=== PATIENT | female | born 1960 | race African-American/Black ===

== ENCOUNTER 2016-11-29 15:47 | Inpatient (IN) | payer BC ==
--- NOTE | ~2016-11-29 | HP ---
History And Physical [address] [place]. [address] NAME: KATTY WICK : 56 STATUS : ADM IN [facility]#: [id number] AGE: 56 ADM/REG DATE : 11/29/16 MR#: [id number] REPORT SERV DATE: 11/30/16 DICTATED BY: SPENSER ZARATE DATE: 11/30/16 REPORT STATUS : Draft TRANSCRIBED BY: MODArtie DATE: 11/30/16 DATE OF ADMISSION: 11/29/2016 CHIEF COMPLAINT: This is a 56-year-old female presenting with shortness of breath. HISTORY OF PRESENT ILLNESS: The patient's history was obtained through careful interview with the patient and her , coupled with review of [facility] and [employer] medical records. The patient states that around November 22, she first began to feel ill. She had a cough that was mostly productive of yellow sputum, but one time actually showed some blood in it. She finally went to see her primary care physician a few days ago and was placed on a Z-Terrence without any help and also an inhaler. She describes dyspnea on exertion. She describes the headache in her forehead was sinus pressure and aching quality, 7/10 in severity, but no nasal discharge, no sore throat. There has been no chest pain. She has had nausea, but no vomiting, no abdominal pain, no diarrhea, no rash, no confusion. The patient has had lightheadedness. She admits that her blood sugars have been poorly controlled with blood sugars mostly over the 200s. REVIEW OF SYSTEMS: Otherwise 14-point review of systems was obtained and was negative. PAST MEDICAL HISTORY: 1. Diabetes. Hemoglobin A1c of 9.1, September 2016. 2. COPD. 3. Stroke. March 2015 with mild memory changes, but no weakness. 4. Gastroesophageal reflux disorder. 5. Hypertension. 6. Dyslipidemia. 7. Neuropathy. 8. Ischemic colitis, seen by Dr. Luevano. 9. Recurrent urinary tract infections. PAST SURGICAL HISTORY: 1. Right carotid endarterectomy. 2. Cholecystectomy. 3. Bilateral breast reduction. 4. Tubal ligation. 5. Knee surgery. ALLERGIES: ROCEPHIN. History And Physical [address] [address] NAME: KATTY WICK : 56 STATUS : ADM IN PAT#: [id number] AGE: 56 ADM/REG DATE : 11/29/16 MR#: [id number] REPORT SERV DATE: 11/30/16 DICTATED BY: SPENSER ZARATE DATE: 11/30/16 REPORT STATUS : Draft TRANSCRIBED BY: ASHLEY DATE: 11/30/16 SOCIAL HISTORY: Quit smoking in 2014. No alcohol abuse. She is . Lives in [place], [place]. Has two children, a son who lives in [facility] and a daughter who lives with the patient herself as well as 4 grandchildren were also living in the home. The patient still works as a practice or student teacher. FAMILY HISTORY: Coronary artery disease, diabetes. Mother and father both in their 50s of heart disease. ALLERGIES: ROCEPHIN. CURRENT MEDICATIONS: Include albuterol inhaler, aspirin 81 mg p.o. daily, Z-Terrence, iron supplement 325 mg p.o. daily, Neurontin 300 mg p.o. b.i.d., Mucinex, Levemir 15 units subcutaneous at bedtime, Creon before each meal, metformin 1000 mg p.o. b.i.d., metoprolol 25 mg p.o. b.i.d., Benicar 40 mg p.o. daily, Protonix 40 mg p.o. daily, Pravachol 40 mg p.o. daily. PHYSICAL EXAMINATION: VITAL SIGNS: Temperature 98.4, pulse 101, blood pressure 144/81, respiratory rate 20, and O2 sat 91% on room air. GENERAL: Pleasant, cooperative, female, with evidence of distress secondary to shortness of breath and cough. HEENT: Pupils equal, round, and reactive to light. No conjunctival pallor. No scleral icterus. Nares are patent. Oropharynx is clear of obstruction. Moist mucous membranes. NECK: Trachea midline. No thyromegaly. LYMPH: No cervical lymphadenopathy. No supraclavicular lymphadenopathy. RESPIRATORY: The patient does seem to have diminished breath sounds at the left base of her lung. I do think I appreciate some focal egophony in the left lower lung as well. She has scattered upper respiratory rhonchi that predominate, but also some scattered active wheezes throughout the entire lung examination. She has a prolonged expiratory phase and a labored respiratory effort. CARDIOVASCULAR: Tachycardic. Regular rhythm. No murmurs, rubs, or gallops. No extremity edema is appreciated. ABDOMEN: Soft, nontender, nondistended. Normal bowel sounds auscultated throughout. No organomegaly. DERMATOLOGICAL: Warm and dry extremities. No pallor. No cyanosis. PSYCHIATRIC: Normal affect. Good mood. Alert and oriented x3. LABORATORY DATA: White blood count 6.8, hemoglobin 9.9, hematocrit 32.3, platelets 344, MCV 73, sodium 138, potassium 4.8, chloride 103, bicarb 28, BUN 10, creatinine 0.89, glucose 162, lactic acid 1.7, INR 1.1. Liver enzymes within normal limits. ABG demonstrates pH 7.42, PaCO2 of 32, PaO2 of 59, bicarbonate of 20 on room air. Urinalysis negative for infection, just shows 8 white blood cells. STUDIES: 1. CT scan of the chest shows no pulmonary embolism, but left middle lung and lower lung pneumonia. 2. EKG, by my own evaluation shows sinus tachycardia, no other abnormalities. History And Physical [address] [address] NAME: KATTY WICK : 56 STATUS : ADM IN [facility]#: [id number] AGE: 56 ADM/REG DATE : 11/29/16 MR#: [id number] REPORT SERV DATE: 11/30/16 DICTATED BY: SPENSER ZARATE DATE: 11/30/16 REPORT STATUS : Draft TRANSCRIBED BY: MODArtie DATE: 11/30/16 ASSESSMENT AND PLAN: 1. Community-acquired pneumonia, "failed" outpatient treatment. Check blood cultures. Check influenza. Placed on IV antibiotics. 2. Hypoxemia, provide supportive care. 3. Chronic obstructive pulmonary disease exacerbation with active wheezes, "tight" exam. Placed on IV Solu-Medrol, DuoNeb nebulizers. 4. Diabetes. Recent hemoglobin A1c of 9.1 in September 2016, increased basal Levemir and placed on aggressive sliding scale insulin. 5. Microcytic anemia. Check iron studies. KPL/MODL Spenser Zarate M.D. / [id number] CC: Tate Saunders M.D.
--- NOTE | ~2016-11-29 | DS ---
Discharge Summary [facility] [address] [place]. [address] NAME: KATTY WICK : 56 STATUS : DIS IN PAT#: [id number] AGE: 56 ADM/REG DATE : 11/29/16 MR#: [id number] REPORT SERV DATE: 12/02/16 DICTATED BY: NATE CABELLO DATE: 12/01/16 REPORT STATUS : Draft TRANSCRIBED BY: MODL DATE: 12/01/16 ADMISSION DATE: 11/29/2016 DISCHARGE DATE: 12/01/2016 DISCHARGE DIAGNOSES: 1. Chronic obstructive pulmonary disease exacerbation. 2. Community-acquired pneumonia, resolving. 3. Hypoxic respiratory failure. 4. Diabetes. 5. Anemia. CONSULTS: None. PROCEDURES: None. HOSPITAL COURSE: This is a 56-year-old lady who was admitted to the hospital with community- acquired pneumonia who has failed outpatient therapy. For details, please refer to H and P by Dr. Aly. In summary, the patient was admitted with a community-acquired pneumonia who has failed outpatient therapy; however, it became more evident that the patient was suffering from a COPD exacerbation, likely related to a community-acquired pneumonia that was now resolving. The patient was treated with IV steroids, bronchodilator therapy, additional antibiotics, and oxygen. The patient actually did really well on the first couple days, and by the third day, the patient really did not require any oxygen therapy. The patient is thus now being discharged home with plans for close outpatient followup. The patient will be discharged home with five additional days of steroids and antibiotics as well as albuterol and Spiriva inhalers. DISPOSITION: Home. FOLLOWUP: Please follow up with PCP in the next one to two weeks. A total of 25 minutes spent in coordinating this patient's discharge today. BRIDGETT/ASHLEY Nate Cabello MD / [id number] CC: MD Tate Solares M.D.
[2016-11-29 15:09] LABS: HEMATOCRIT 32.3 % (36.0-48.0); HEMOGLOBIN 9.9 g/dL (12.0-16.0); MEAN CORPUS HGB CONC 30.7 g/dL (32.0-36.0); MEAN CORPUSCULAR HEMOGLOB 22.4 pg (26.0-34.0); MEAN CORPUSCULAR VOLUME 73.2 fL (80-100); MEAN PLATELET VOLUME 9.5 fL (9.2-13.0); PLATELET COUNT 344 10/3/uL (150-400); RBC DISTRIBUTION WIDTH 16.8 % (12.0-16.0); RED CELL COUNT 4.41 10/6/uL (4.0-5.6)
[2016-11-29 15:10] LABS: ER CBC TAT 0 Hrs 08 Mins; MANUAL DIFF YES %; WHITE BLOOD CELLS 6.8 10/3/uL (4.5-10.5)
[2016-11-29 15:15] LABS: INTERNATIONAL NORMAL RATI 1.1 UNITS (-); PROTIME (NOT ORD) 13.8 SEC (12.0-14.5)
[2016-11-29 15:16] LABS: PARTIAL THROMBO TIME 25.8 SEC (22.5-37.2)
[2016-11-29 15:22] LABS: A/G RATIO 0.7 (0.7-1.9); ALBUMIN 3.4 G/DL (3.5-5.0); BUN (BLOOD UREA NITROGEN) 10 MG/DL (6-23); CALCIUM, SERUM 8.6 MG/DL (8.5-10.4); CHLORIDE, SERUM 103 MMOL/L (96-112); CO2 (CARBON DIOXIDE) 26 MMOL/L (24-34); CREATININE 0.89 MG/DL (0.55-1.02); GFR AFRICAN AMERICAN 83 ML/MIN (>=60); GFR NON AFRICAN AMERICAN 71 ML/MIN (>=60); GLOBULIN 4.9 G/DL (2.5-4.1); GLUCOSE, SERUM 162 MG/DL (60-99); POTASSIUM, SERUM 4.2 MMOL/L (3.5-5.3); SGOT(AST) 18 U/L (5-40); SGPT(ALT) 17 U/L (5-65); SODIUM, SERUM 138 MMOL/L (135-148); TOTAL BILIRUBIN 0.2 MG/DL (0-1.2); TOTAL PROTEIN 8.3 G/DL (6.0-8.5)
[2016-11-29 15:24] LABS: ALKALINE PHOSPHATASE 97 U/L (45-117)
[2016-11-29 15:28] LABS: LACTATE 1.7 MMOL/L (0.3-2.4)
[2016-11-29 15:36] LABS: ANISOCYTOSIS 1+ (5-10/OIF) (0-5/OIF); BASOPHILS 1 %; BASOPHILS ABSOLUTE (CALC) 0.07 10/3/uL (0.0-0.16); EOSINOPHILS 3 %; ER DIFF TAT 0 Hrs 34 Mins; LYMPHOCYTES 35 %; LYMPHOCYTES ABSOLUTE (CALC) 2.38 10/3/uL (0.67-4.30); MONOCYTES 5 %; MONOCYTES ABSOLUTE (CALC) 0.34 10/3/uL (0.21-1.20); NEUTROPHILS ABSOLUTE (CALC) 3.81 10/3/uL (2.02-8.40); POIKILOCYTOSIS 1+ (5-10/OIF) (0-5/OIF); SEGMENTED NEUTROPHIL (0) 56 %; TOTAL NUCLEATED CELLS 100
[2016-11-29 15:37] LABS: ATYPICAL LYMPH FEW (3-5%) (0-5%)
[2016-11-29 15:43] LABS: ASCORBIC ACID (UR NOT ORDER) NEG (NEG); BILIRUBIN, URINE NEGATIVE (NEG); ER URINALYSIS TAT 0 Hrs 10 Mins; KETONE, URINE TRACE MG/DL (NEG); LEUKOCYTE ESTERASE(NOT OR TRACE (NEG); NITRITE (URINE) NEG (NEG); WBC (NOT ORDERED) (RFLEX) 8 (0-5)
[~2016-11-29 15:47] MED LIST: ASAB PO; BENICAR20 PO; EZFE 200200 MG PO; GLUCOPHAGE1000 MG PO; GLUCPH PO; INDE80 PO; LIOR10; LIOR10 PO; LOP25 PO; NEUR100 PO; NEXIUM40 PO; NITROSTAT0.4 MG SL; NORCO1 TA1; NORCO1 TA1 PO; NTG150 SL; PLAVIX PO; PRAVACHOL40 MG PO; PROTONIX PO; TRADJENTA5 MG PO; ULTRAM50 PO; ZANTAC 150 PO; ZANTAC150 MG PO; ZOCOR20 PO
[2016-11-29 16:14] LABS: PROCALCITONIN 0.06 ng/mL (<0.5)
[2016-11-29 17:12] LABS: ALLENS TEST Pos; BE (BASE EXCESS) -3.2 MEQ/L (0 +/- 2.5); CARBOXYHEMOGLOBIN 0.9 % (0-3); HCO3 (ACTUAL BICARBONATE) 20.5 MEQ/L (23-27); HEMOBLOGIN CONTENT 10.4 G/DL (12-16); INSTRUMENT SERIAL # 8087; METHEMOGLOBIN 0.5 % (0-3); O2 CONTENT 13.2 VOL% (18-24); PCO2 (CO2 TENSION) 32 MMHG (35-45); PO2 (O2 TENSION) 60 MMHG (79-93); SAMPLE Arterial; pH 7.43 (7.37-7.43)
[2016-11-29] MEDS ORDERED: BENICAR40 PO (19:42)
[2016-11-29] MEDS ORDERED: ASAB PO (19:42)
[2016-11-29] MEDS ORDERED: NEUR100 PO (19:43)
[2016-11-29] MEDS ORDERED: CREON DR 36,001 EACH PO (19:43)
[2016-11-29] MEDS ORDERED: FERROUS SULF325 M1 PO (19:43)
[2016-11-29] MEDS ORDERED: PROTONIX PO (19:44)
[2016-11-29] MEDS ORDERED: LEVEMIR SC (19:44)
[2016-11-29] MEDS ORDERED: LOP25 PO (19:44)
[2016-11-29] MEDS ORDERED: FORTAMET1000 MG PO (19:44)
[2016-11-29] MEDS ORDERED: MUCINEX1200 MG PO (19:45)
[2016-11-29] MEDS ORDERED: PRAVACHOL40 MG PO (19:45)
[2016-11-29] MEDS ORDERED: Z-PAK PO (19:45)
[2016-11-29] MEDS ORDERED: PROAIR HFA INH (19:46)
[2016-11-29 23:26] LABS: INFLUENZA A SCREEN NEGATIVE (NEGATIVE); INFLUENZA B SCREEN NEGATIVE (NEGATIVE)
[2016-11-30 07:16] LABS: BASOPHILS 0.2 %; BASOPHILS ABSOLUTE 0.01 10/3/uL (0.0-0.16); EOSINOPHILS 0 %; HEMATOCRIT 29.5 % (36.0-48.0); HEMOGLOBIN 9.2 g/dL (12.0-16.0); IMMATURE GRANULOCYTES 0.2 %; IMMATURE GRANULOCYTES ABSOLUTE 0.01 10/3/uL (0.0-0.11); LYMPHOCYTES 20.8 %; LYMPHOCYTES ABSOLUTE 1.12 10/3/uL (0.67-4.30); MEAN CORPUS HGB CONC 31.2 g/dL (32.0-36.0); MEAN CORPUSCULAR HEMOGLOB 22.3 pg (26.0-34.0); MEAN CORPUSCULAR VOLUME 71.4 fL (80-100); MEAN PLATELET VOLUME 9.5 fL (9.2-13.0); MONOCYTES 4.5 %; MONOCYTES ABSOLUTE 0.24 10/3/uL (0.21-1.20); NEUTROPHILS 74.3 %; NEUTROPHILS ABSOLUTE 4.01 10/3/uL (2.02-8.40); PLATELET COUNT 363 10/3/uL (150-400); RBC DISTRIBUTION WIDTH 16.9 % (12.0-16.0); RED CELL COUNT 4.13 10/6/uL (4.0-5.6); WHITE BLOOD CELLS 5.4 10/3/uL (4.5-10.5)
[2016-11-30 07:18] LABS: MANUAL DIFF NO %
[2016-11-30 07:23] LABS: PARTIAL THROMBO TIME 28.6 SEC (22.5-37.2)
[2016-11-30 07:24] LABS: INTERNATIONAL NORMAL RATI 1.2 UNITS (-); PROTIME (NOT ORD) 14.6 SEC (12.0-14.5)
[2016-11-30 07:33] LABS: CALCIUM, SERUM 8.4 MG/DL (8.5-10.4); CHLORIDE, SERUM 103 MMOL/L (96-112); POTASSIUM, SERUM 3.9 MMOL/L (3.5-5.3); SODIUM, SERUM 138 MMOL/L (135-148)
[2016-11-30 08:05] LABS: A/G RATIO 0.7 (0.7-1.9); ALBUMIN 3.3 G/DL (3.5-5.0); ALKALINE PHOSPHATASE 87 U/L (45-117); CREATININE 0.89 MG/DL (0.55-1.02); FERRITIN 85 NG/ML (8-252); GFR AFRICAN AMERICAN 83 ML/MIN (>=60); GFR NON AFRICAN AMERICAN 71 ML/MIN (>=60); IRON BINDING CAPACITY 259 MCG/DL (225-410); IRON, SERUM 19 MCG/DL (35-150); SGOT(AST) 15 U/L (5-40); SGPT(ALT) 18 U/L (5-65); TOTAL BILIRUBIN 0.2 MG/DL (0-1.2); TOTAL PROTEIN 8.3 G/DL (6.0-8.5); TROPONIN I <0.02 NG/ML (<0.05)
[2016-11-30 08:06] LABS: BUN (BLOOD UREA NITROGEN) 14 MG/DL (6-23); CO2 (CARBON DIOXIDE) 21 MMOL/L (24-34); GLUCOSE, SERUM 289 MG/DL (60-99); ULTRASENSITIVE TSH 0.546 MCIU/ML (0.358-3.740)
[2016-11-30 11:50] LABS: PROCALCITONIN 0.08 ng/mL (<0.5)
[2016-12-01] MEDS ORDERED: LEVAQUIN750 MG PO (14:48)
[2016-12-01] MEDS ORDERED: P10 PO (14:48)
== END 2016-12-01 18:30 | disposition home or self-care (01) | DRG 190 ==
LOC: ER 15:47 → 4SO 19:25
PROVIDERS: Hospitalist; Nurse Practitioner
DX: J44.1 Chronic obstructive pulmonary disease with (acute) exacerbation (principal); J18.9 Pneumonia, unspecified organism; J96.91 Respiratory failure, unspecified with hypoxia; K55.1 Chronic vascular disorders of intestine; E11.9 Type 2 diabetes mellitus without complications; K21.9 Gastro-esophageal reflux disease without esophagitis; E78.5 Hyperlipidemia, unspecified; D64.9 Anemia, unspecified; J44.0 Chronic obstructive pulmonary disease with (acute) lower respiratory infection; I69.311 Memory deficit following cerebral infarction; Z87.891 Personal history of nicotine dependence; Z88.1 Allergy status to other antibiotic agents; Z79.82 Long term (current) use of aspirin; Z79.4 Long term (current) use of insulin; Z79.84 Long term (current) use of oral hypoglycemic drugs
CPT/HCPCS: 36600; 71010; 71275; 80053; 81001; 82728; 82805; 82962; 83540; 83550; 83605; 83735; 83880; 84145; 84443; 84484; 85025; 85610; 85730; 87040; 87804; 93005; 94640; 96374; 96375; 99285; A9270-GY; J1956; J2920; J2930; Q9967

== ENCOUNTER 2017-01-26 05:36 | Inpatient (IN) | payer BC ==
--- NOTE | ~2017-01-26 | CN ---
Consultation Report [facility] [address] [place]. [address] NAME: KATTY WICK : 56 STATUS : ADM Barry PAT#: [id number] AGE: 56 ADM/REG DATE : 01/26/17 MR#: [id number] REPORT SERV DATE: 01/26/17 DICTATED BY: DATE: REPORT STATUS : Draft TRANSCRIBED BY: MODL DATE: 01/26/17 DATE OF CONSULTATION: 01/26/2017 CHIEF COMPLAINT/REASON FOR CONSULTATION: Chest pain and abnormal cardiac biomarkers. PRIMARY STOCK SORTER: Reid Ferro MD HISTORY OF PRESENT ILLNESS: Ms. Katty Wick is very pleasant 56-year-old female, who awakened at 2:30 this morning with midsternal chest pain that radiated to her arm and in between her shoulder blades. It was 7/10 in intensity and was relieved by aspirin and nitroglycerin paste in the emergency department. When she arrived at the emergency department, her pain was 9/10 in intensity and then completely resolved. It has since returned, it is currently 2/10 to 3/10 in intensity. Her chest pain was associated with nausea and vomiting, it was not associated with shortness of breath. She felt warm, but not diaphoretic. Her initial cardiac biomarker in the emergency department was negative and has since increased to 0.35. PAST MEDICAL HISTORY: 1. Coronary artery disease, status post cardiac catheterization, 04/21/2015, with borderline obstructive branch vessel disease. 2. History of cerebrovascular disease and prior stroke. 3. History of carotid stenosis, status post carotid endarterectomy on the right by Dr. Tesfaye. 4. Hypertension. 5. Diabetes mellitus. 6. Hyperlipidemia. SOCIAL HISTORY: The patient is . She is a former smoker. Her and her daughter are present at the bedside. She does not use alcohol or extracurricular drugs. ALLERGIES: ROCEPHIN. FAMILY HISTORY: Both parents of coronary artery disease in their 50s. REVIEW OF SYSTEMS: All systems were reviewed and are negative, except for as dictated in the HPI. PHYSICAL EXAMINATION: VITAL SIGNS: Blood pressure 133 to 153 over 73 to 96, pulse is between 74 and 96, respirations 16, oxygen saturation 99% on room air. GENERAL: Mrs. Wick is a well-groomed 56-year-old female. She is in mild distress at this time. NECK: I could not appreciate jugular venous distention or carotid bruits. Prior carotid endarterectomy scar is noted on the right. HEART: Regular rate and rhythm. Normal S1 and S2. I could not appreciate murmurs, rubs, Consultation Report [place] [id number] [place]. [address] NAME: KATTY WICK : 56 STATUS : ADM Barry PAT#: [id number] AGE: 56 ADM/REG DATE : 01/26/17 MR#: [id number] REPORT SERV DATE: 01/26/17 DICTATED BY: DATE: REPORT STATUS : Draft TRANSCRIBED BY: MODL DATE: 01/26/17 or gallops on auscultation. LUNGS: Clear to auscultation in all pabon. ABDOMEN: Obese and nontender. I could not appreciate renal bruits. EXTREMITIES: Warm and well perfused. Femoral pulses +2 bilaterally. There are no femoral bruits present. Godfrey test on the right wrist demonstrated a slow return of blood supply to the palm of that hand with occlusion of the right radial artery. MUSCULOSKELETAL: There is no clubbing or cyanosis of the digits. DATA: Initial troponin less than 0.02, now 0.35. Potassium 4.1, BUN 27, creatinine 0.99, magnesium is 1.6. White blood cell count 16.4, hemoglobin 9.8, hematocrit 30.6, platelet count 409. An EKG performed on arrival to the emergency department demonstrated normal sinus rhythm at 94 beats per minute. There is a left axis deviation versus prior inferior myocardial infarction. There is poor R-wave progression present. Repeat EKG performed on 01/26/2017 at 12:52 demonstrated similar findings. IMPRESSION REPORT AND PLAN: 1. Tma-AN-vqchdover myocardial infarction. 2. Hypertension. 3. Hyperlipidemia. 4. Diabetes mellitus. 5. Carotid stenosis, status post carotid endarterectomy. RECOMMENDATIONS: 1. Would continue aspirin. 2. We have given nitroglycerin, which is partially relieving the patient's pain. 3. Start heparin drip via the cardiac protocol. 4. We discussed the risks, benefits, and alternatives of cardiac catheterization with the patient, who is agreeable to proceed. 5. Continue metoprolol tartrate. 6. Stop pravastatin and change to high-intensity statin. 7. Additional recommendations pending clinical course and cardiac catheterization. It has been my pleasure to participate in her care. LGC/MODL Koki Weir M.D. / [id number] CC: Bill Boothe MD
--- NOTE | ~2017-01-26 | HP ---
History And Physical [place] [id number] [facility] [place]. [address] NAME: KATTY WICK : 56 STATUS : DIS IN PAT#: [id number] AGE: 56 ADM/REG DATE : 01/26/17 MR#: [id number] REPORT SERV DATE: 01/29/17 DICTATED BY: WILDER TEMPLE DATE: 01/26/17 REPORT STATUS : Draft TRANSCRIBED BY: MODL DATE: 01/26/17 DATE OF ADMISSION: 01/26/2017 CHIEF COMPLAINT: Chest pain started last night at 2:30 while she was asleep. HISTORY OF PRESENT ILLNESS: This is a 56-year-old female patient who has mild coronary artery disease and obesity who came to the hospital waking up with chest pain at night. She said it is in her anterior chest and goes back to her back and it is a stabbing pain, it started at night and it continues currently. It has been more than 5 hours. She did not have any other unusual signs or symptoms prior to these symptoms happened before. She said she had a normal her daily's, until this pain started. Does not have any cough. She vomited this morning at home before she came to the hospital. She denies any shortness of breath. She thinks her morphine was helping her little bit, but she still has pain and nitroglycerin did not help her pain. She denies any pleuritic, worsening pain with this pain. Denies any palpitation or sweat or nausea. Initially, the patient was referred to chest pain unit, however, because of leukocytosis at 16,000, the patient has been redirected to be admitted by hospitalist service. I talked to Dr. Deshpande, who was given this patient from Dr. Osorio. In the emergency room, the patient had a negative workup including troponin and electrocardiogram. The electrocardiogram is same as the last time when she was here, not too long ago. She is followed by Dr. Ferro in the [facility]. She had a recent echocardiogram for evaluation of , and it showed mild diastolic dysfunction with mild mitral regurgitation and stenosis. The patient has not had any followup with Dr. Ferro after this 2D echocardiogram is done. She had a cardiac catheterization in 2014 prior to carotid endarterectomy. It showed a mild two-vessel branch disease, did not have any intervention at that time, she was put on medical treatment. She does not have any fever or chills. No urination problem. No constipation. No bleeding. REVIEW OF SYSTEMS: Fourteen systems are reviewed and negative except as mentioned above. PAST MEDICAL HISTORY: 1. Coronary artery disease, two-vessel disease as well as cardiac cath. 2. Peripheral vascular disease, status post right-sided carotid endarterectomy. 3. Diabetes, uncontrolled. History And Physical [address] [address] NAME: KATTY WICK : 56 STATUS : DIS IN PAT#: [id number] AGE: 56 ADM/REG DATE : 01/26/17 MR#: [id number] REPORT SERV DATE: 01/29/17 DICTATED BY: WILDER TEMPLE DATE: 01/26/17 REPORT STATUS : Draft TRANSCRIBED BY: ASHLEY DATE: 01/26/17 4. COPD. 5. Stroke without any deficit. 6. GERD. 7. Hypertension. 8. Hyperlipidemia. 9. Neuropathy. 10.Ischemic colitis with GI bleed, seen by Dr. Luevano. 11.History of UTI. 12.Morbid obesity. 13.Osteoarthritis. The patient had a steroid injection two days ago by Dr. Coffman in her left knee. PAST SURGICAL HISTORY: 1. Right carotid endarterectomy. 2. Cholecystectomy. 3. Bilateral breast reduction. 4. Tubal ligation. 5. Knee surgery. ALLERGIES: ROCEPHIN. FAMILY HISTORY: Positive for heart disease. SOCIAL HISTORY: She quit smoking in 2014. She is . Lives with her . She works as a teacher. MEDICATIONS AT HOME: 1. Albuterol as needed. 2. Aspirin 81 mg once a day. 3. EZFE 200 mg once a day. 4. Neurontin 200 mg twice a day. 5. Levemir 15 units at night. 6. Creon 36,000 units before meals and at bedtime. 7. Metformin 1000 mg twice a day. 8. Lopressor 25 mg twice a day. 9. Benicar 40 mg once a day. 10.Protonix 40 mg once a day. 11.Pravachol 40 mg once at nighttime. 12.Spiriva once a day. PHYSICAL EXAMINATION: VITAL SIGNS: Blood pressure is 133/75, respiratory rate 14, saturation is 99% on room air, pulse is 84, temperature was 97.5. GENERAL APPEARANCE: She is alert, awake, not in acute distress. Very pleasant, obese female patient. HEENT: Pupils are equal, round, and reactive to light. EOMI intact. Conjunctivae not anemic. History And Physical [address] [address] NAME: KATTY WICK : 56 STATUS : DIS IN PAT#: [id number] AGE: 56 ADM/REG DATE : 01/26/17 MR#: [id number] REPORT SERV DATE: 01/29/17 DICTATED BY: WILDER TEMPLE DATE: 01/26/17 REPORT STATUS : Draft TRANSCRIBED BY: ASHLEY DATE: 01/26/17 NECK: No nodes palpable. No bruits audible. LUNGS: Pretty clear to auscultation. Has a little decreased breathing sound at both bases. CARDIOVASCULAR: Has a systolic murmur. Has a regular rhythm and rate. ABDOMEN: Bowel sounds are present. Soft. No organomegaly appreciated. CHEST: The patient has some tenderness on the anterior chest with palpitation. EXTREMITIES: There is no pedal edema. LABORATORY: Showed sodium 138, potassium 4.1, chloride 104, BUN 27, creatinine 0.99. WBC 16.4, hemoglobin 9.8, hematocrit 30.6, platelets 409. Troponin less than 0.02. Chest x-ray showed shallow breathe without infiltrate. Electrocardiogram is normal sinus rhythm. There is no specific change than previous EKG in 11/2016. ASSESSMENT/PLAN: 1. Chest pain. It is not typical cardiac presentation, however, the patient does have significant history and also has a gastroenterology etiology. Therefore, we are going to obtain a stress test first and we will treat GI if cardiac evaluation is negative. We are going to use dose of diuretics. 2. Diastolic dysfunction on echocardiogram. 3. Diabetes mellitus with hyperglycemia. 4. Coronary artery disease with mitral stenosis. 5. Leukocytosis ?Induced from steroid injection recently. 6. History of esophagitis, gastroesophageal reflux disease, gastrointestinal bleed, and ischemic colitis in the past. Overall, the patient will be kept under observation status in the hospital. We will try to obtain serial troponins and we are going to get a nuclear stress test on this patient. I explained the patient about the plan of care and then she and her voiced understanding. All questions are answered. EKL/MODL Wilder Temple M.D. / [id number] CC: Wilder Temple M.D.
--- NOTE | ~2017-01-26 | DS ---
Discharge Summary [facility] [address] [place]. [address] NAME: KATTY WICK : 56 STATUS : DIS IN PAT#: [id number] AGE: 56 ADM/REG DATE : 01/26/17 MR#: [id number] REPORT SERV DATE: 02/20/17 DICTATED BY: MARY TEMPLE DATE: 02/20/17 REPORT STATUS : Draft TRANSCRIBED BY: MODL DATE: 02/20/17 ADMISSION DATE: 01/26/2017 DISCHARGE DATE: 01/27/2017 DISCHARGE DIAGNOSES: 1. Tmz-VD-zghgxedzy myocardial infarction, status post drug-eluting stent x2. 2. Diabetes mellitus. 3. History of cerebrovascular accident. 4. History of GERD. CONSULTANTS: Dr. Joseph. HISTORY OF PRESENT ILLNESS: This is a 56-year-old female patient, who came to the hospital with chest pain. Please see the dictated H and P. HOSPITAL COURSE: She was admitted to the hospital with chest pain with negative initial workup finding. Subsequently, she developed a positive troponin and director was consulted immediately. They decided to go ahead and do the cardiac catheterization and did a 2 stent. After that, she stayed overnight in the short stay, had an uneventful recovery and she is discharged to home in stable condition with followup. DISCHARGE MEDICATIONS: Aspirin 81 mg once a day; Atorvastatin 40 mg once at nighttime; gabapentin 200 mg twice a day; long-acting insulin was increased to 15 units at bedtime; Creon 3 capsules 3 times a day; metoprolol 25 mg twice a day; olmesartan 40 mg once a day; Protonix 40 mg once a day; Spiriva once a day; and Brilinta 90 mg twice a day. DISPOSITION: The patient is discharged to home in stable condition. Overall, had an uneventful and successful treatment for [id number] AR. DICTATED BY: Bill Boothe/ASHLEY Mary Temple M.D. / [id number] CC: Bill Boothe M.D.
[2017-01-26 05:08] LABS: BASOPHILS 0.1 %; BASOPHILS ABSOLUTE 0.02 10/3/uL (0.0-0.16); EOSINOPHILS 0.1 %; EOSINOPHILS ABSOLUTE 0.01 10/3/uL (0.0-0.53); HEMATOCRIT 30.6 % (36.0-48.0); HEMOGLOBIN 9.8 g/dL (12.0-16.0); IMMATURE GRANULOCYTES 0.3 %; IMMATURE GRANULOCYTES ABSOLUTE 0.05 10/3/uL (0.0-0.11); LYMPHOCYTES 23.3 %; LYMPHOCYTES ABSOLUTE 3.81 10/3/uL (0.67-4.30); MEAN CORPUSCULAR HEMOGLOB 22.7 pg (26.0-34.0); MEAN PLATELET VOLUME 9.4 fL (9.2-13.0); MONOCYTES 6.2 %; MONOCYTES ABSOLUTE 1.01 10/3/uL (0.21-1.20); NEUTROPHILS ABSOLUTE 11.48 10/3/uL (2.02-8.40); PLATELET COUNT 409 10/3/uL (150-400); RBC DISTRIBUTION WIDTH 17.5 % (12.0-16.0); RED CELL COUNT 4.31 10/6/uL (4.0-5.6)
[2017-01-26 05:17] LABS: ER CBC TAT 0 Hrs 14 Mins; MANUAL DIFF NO %; WHITE BLOOD CELLS 16.4 10/3/uL (4.5-10.5)
[2017-01-26 05:21] LABS: PARTIAL THROMBO TIME 24.8 SEC (22.5-37.2); PROTIME (NOT ORD) 12.8 SEC (12.0-14.5)
[2017-01-26 05:25] LABS: CHEST PAIN PROFILE TAT 0 Hrs 22 Mins; CHLORIDE, SERUM 104 MMOL/L (96-112); CREATININE 0.99 MG/DL (0.55-1.02); GFR AFRICAN AMERICAN 73 ML/MIN (>=60); GFR NON AFRICAN AMERICAN 63 ML/MIN (>=60); GLUCOSE, SERUM 232 MG/DL (60-99); POTASSIUM, SERUM 4.1 MMOL/L (3.5-5.3); SODIUM, SERUM 138 MMOL/L (135-148); TROPONIN I <0.02 NG/ML (<0.05)
[~2017-01-26 05:36] MED LIST changes: +BENICAR40 PO; +CREON DR 36,001 EACH PO; +FERROUS SULF325 M1 PO; +FORTAMET1000 MG PO; +LEVAQUIN750 MG PO; +LEVEMIR SC; +MUCINEX1200 MG PO; +P10 PO; +PROAIR HFA INH; +Z-PAK PO
[2017-01-26 05:44] LABS: BUN (BLOOD UREA NITROGEN) 27 MG/DL (6-23); CO2 (CARBON DIOXIDE) 26 MMOL/L (24-34)
[2017-01-26 06:57] LABS: LACTATE 1.8 MMOL/L (0.3-2.4)
[2017-01-26 07:17] LABS: PROCALCITONIN <0.05 ng/mL (<0.5)
[2017-01-26] MEDS ORDERED: SPIRIVA INH (07:43)
[2017-01-26] MEDS ORDERED: EZFE 200200 MG PO (07:44)
[2017-01-26] MEDS ORDERED: OTC NASAL SPRAY NAS (07:45)
[2017-01-26] MEDS ORDERED: SYSTANE OPH (07:45)
[2017-01-26 14:19] LABS: CHOL/HDL RATIO(NOT ORDER) 3.1 (0-5); CHOLESTEROL 122 MG/DL (< 200); HDL CHOLESTEROL 40 MG/DL (> 49); LDL CHOLESTEROL 43 MG/DL (< 130); NON-HDL CHOLESTEROL 82 MG/DL (< 160); TRIGLYCERIDE 199 MG/DL (< 150)
[2017-01-26 17:24] LABS: CK-MB 5.6 NG/ML; CKMB INDEX (NOT ORD) 4.3; TROPONIN I 0.79 NG/ML (<0.05)
[2017-01-27 05:08] LABS: BASOPHILS 0.4 %; BASOPHILS ABSOLUTE 0.05 10/3/uL (0.0-0.16); EOSINOPHILS ABSOLUTE 0.13 10/3/uL (0.0-0.53); HEMATOCRIT 31.5 % (36.0-48.0); HEMOGLOBIN 9.8 g/dL (12.0-16.0); IMMATURE GRANULOCYTES 0.4 %; IMMATURE GRANULOCYTES ABSOLUTE 0.05 10/3/uL (0.0-0.11); LYMPHOCYTES 31.7 %; LYMPHOCYTES ABSOLUTE 3.99 10/3/uL (0.67-4.30); MEAN CORPUS HGB CONC 31.1 g/dL (32.0-36.0); MEAN CORPUSCULAR HEMOGLOB 22.1 pg (26.0-34.0); MEAN CORPUSCULAR VOLUME 71.1 fL (80-100); MEAN PLATELET VOLUME 9.6 fL (9.2-13.0); MONOCYTES 6.6 %; MONOCYTES ABSOLUTE 0.83 10/3/uL (0.21-1.20); NEUTROPHILS 59.9 %; NEUTROPHILS ABSOLUTE 7.53 10/3/uL (2.02-8.40); PLATELET COUNT 414 10/3/uL (150-400); RBC DISTRIBUTION WIDTH 17.5 % (12.0-16.0); RED CELL COUNT 4.43 10/6/uL (4.0-5.6); WHITE BLOOD CELLS 12.6 10/3/uL (4.5-10.5)
[2017-01-27 05:18] LABS: MANUAL DIFF NO %
[2017-01-27 05:37] LABS: CALCIUM, SERUM 9.3 MG/DL (8.5-10.4); CHLORIDE, SERUM 105 MMOL/L (96-112); CO2 (CARBON DIOXIDE) 24 MMOL/L (24-34); CREATININE 0.74 MG/DL (0.55-1.02); GFR AFRICAN AMERICAN 104 ML/MIN (>=60); GFR NON AFRICAN AMERICAN 89 ML/MIN (>=60); POTASSIUM, SERUM 4.3 MMOL/L (3.5-5.3); SODIUM, SERUM 139 MMOL/L (135-148)
[2017-01-27 05:42] LABS: BUN (BLOOD UREA NITROGEN) 17 MG/DL (6-23); CK-MB 3.2 NG/ML; CPK 97 U/L (0-200); GLUCOSE, SERUM 184 MG/DL (60-99)
[2017-01-27] MEDS ORDERED: LIPITOR40 PO (09:37)
[2017-01-27] MEDS ORDERED: BRILINTA90 MG PO (09:38)
== END 2017-01-27 10:21 | disposition home or self-care (01) | DRG 247 ==
LOC: ER 05:36 → CDU1 08:07 → SSU1 15:57
PROVIDERS: Internal Medicine; Internal Medicine Cardiovascular Disease; Nurse Practitioner
PROC: 027035Z Dilation of Coronary Artery, One Artery with Two Drug-eluting Intraluminal Devices, Percutaneous Approach (ICD-10-PCS; principal; 2017-01-26)
PROC: 4A023N7 Measurement of Cardiac Sampling and Pressure, Left Heart, Percutaneous Approach (ICD-10-PCS; 2017-01-26)
PROC: B2151ZZ Fluoroscopy of Left Heart using Low Osmolar Contrast (ICD-10-PCS; 2017-01-26)
PROC: B2111ZZ Fluoroscopy of Multiple Coronary Arteries using Low Osmolar Contrast (ICD-10-PCS; 2017-01-26)
DX: I21.4 Non-ST elevation (NSTEMI) myocardial infarction (principal); K55.9 Vascular disorder of intestine, unspecified; E11.42 Type 2 diabetes mellitus with diabetic polyneuropathy; E11.65 Type 2 diabetes mellitus with hyperglycemia; I25.10 Atherosclerotic heart disease of native coronary artery without angina pectoris; E66.9 Obesity, unspecified; I34.0 Nonrheumatic mitral (valve) insufficiency; I73.9 Peripheral vascular disease, unspecified; J44.9 Chronic obstructive pulmonary disease, unspecified; K21.9 Gastro-esophageal reflux disease without esophagitis; I10 Essential (primary) hypertension; E78.5 Hyperlipidemia, unspecified; E66.01 Morbid (severe) obesity due to excess calories; M19.90 Unspecified osteoarthritis, unspecified site; Z86.73 Personal history of transient ischemic attack (TIA), and cerebral infarction without residual deficits; Z98.890 Other specified postprocedural states; Z88.1 Allergy status to other antibiotic agents; Z82.49 Family history of ischemic heart disease and other diseases of the circulatory system; Z87.891 Personal history of nicotine dependence
CPT/HCPCS: 71010; 80048; 80061; 82550; 82553; 82962; 83605; 83690; 83735; 84145; 84484; 84703; 85025; 85347; 85610; 85730; 87040; 93005; 93458; 96374; 96376; 99152; 99153; 99285; A9270-GY; C1725; C1769; C1874; C1887; C1894; C9600; J2250; J3010; Q9967